=== PATIENT | female | born 1940 | race Caucasian/White ===

== ENCOUNTER 2019-10-01 13:49 | Outpatient (CLI) | payer MEDICARE, OTHER ==
[~2019-10-01] VITALS: Ht 160 cm; Wt 66.2 kg
[2019-10-01] MEDS ORDERED: IOHEXOL-350 100 ML VIAL IV ONE (13:55)
[2019-10-01] MEDS ORDERED: CT SWABBABLE VALVE TRANS SET 1 EA INFUS.SET MC ONE (13:56)
[2019-10-01] MEDS ORDERED: IV NS 0.9% 250 ML IV ONE (13:56)
[2019-10-01] MEDS ORDERED: METOPROLOL TARTRATE INJ 5 MG/5 ML AMPUL ONE (14:09)
[2019-10-01 14:14] VITALS: BP 142/71
[2019-10-01] MEDS ORDERED: NITROGLYCERIN 0.4 MG/TAB BOTTLE SL ONE (14:30)
[2019-10-01] MEDS ORDERED: METOPROLOL TARTRATE INJ 5 MG/5 ML AMPUL IVP PRN (14:30)
== END 2019-10-01 23:59 | disposition home or self-care (01) ==
LOC: CT 13:49
PROVIDERS: ATTEND Nurse Practitioner Acute Care
DX: Z13.6 Encounter for screening for cardiovascular disorders (principal); R07.9 Chest pain, unspecified; M47.814 Spondylosis without myelopathy or radiculopathy, thoracic region
CPT/HCPCS: 75574; J3490; J7050; Q9967